=== PATIENT | female | born 1955 | race Caucasian/White ===

== ENCOUNTER 2019-07-17 11:05 | Emergency (ER) | payer MEDICARE, SELFPAY ==
[2019-07-17 11:18] VITALS: BP 163/71; PULSE 67; RESP 18; TEMP 36.7; O2SAT 99
--- NOTE | 2019-07-17 11:22 | DI.RAD.S_ITS ---
PROCEDURE: XR HIP W PEL IF DONE LT 2V INDICATIONS: non traumatic pain TECHNIQUE: AP pelvis with lateral view(s) of the left hip(s). COMPARISON: [facility], CR, XR LUMBAR SPINE 2-3V, 07/17/2019, 11:40. FINDINGS: Bones: Osteophyte collar versus step-off at the left femoral head neck junction. Marked joint narrowing along the lateral portion of the acetabulum with associated marginal osteophytes. Soft tissues: The visualized bowel gas pattern is normal. Vascular calcification in the pelvis. IMPRESSION: Suspected nondisplaced left femoral neck fracture. Consider CT of the left hip if clinically warranted. Moderate to severe left hip osteoarthritis. Dictated by: Dickson Lee M.D. on 07/17/2019 at 11:17 Approved by: Dickson Lee M.D. on 07/17/2019 at 11:23
--- NOTE | 2019-07-17 11:26 | DI.RAD.S_ITS ---
PROCEDURE: XR LUMBAR SPINE 2-3V INDICATIONS: non traumatic pain TECHNIQUE: 2 views of the lumbar spine were acquired. COMPARISON: None. FINDINGS: Bones: 5 [id number] vertebrae are present. No evidence of a compression fracture. No spondylolisthesis. There is S-shaped curvature of the visualized throughout the lumbar spine. Multilevel disc height loss and facet arthrosis. Soft tissues: Overlying bowel gas pattern is normal. Vascular calcifications of the aorta. Surgical clips in the right upper abdomen. IMPRESSION: Degenerative change of the lumbar spine. Dictated by: Dickson Lee M.D. on 07/17/2019 at 11:23 Approved by: Dickson Lee M.D. on 07/17/2019 at 11:25
[2019-07-17] MEDS: CYCLOBENZAPRINE 5 MG TABLET PO (12:48)
[2019-07-17] MEDS: ACETAMINOPHEN 325 MG TABLET 650 MG PO (12:48)
--- NOTE | 2019-07-17 13:01 | DI.CT.S_ITS ---
PROCEDURE: CT LUMBAR SPINE WO CON INDICATIONS: low back pain, xray non-displaced femoral head fx TECHNIQUE: Noncontrast 3 mm thick sections acquired from the T12 level to the sacrum. Sagittal and coronal reformats were constructed. For radiation dose reduction, the following was used: automated exposure control. COMPARISON: [facility], CR, XR LUMBAR SPINE 2-3V, 07/17/2019, 11:40. FINDINGS: Image quality: Excellent. Bones: The spondylolisthesis. Levoscoliosis of the lumbar spine. No acute vertebral body compression fractures. No suspicious lytic or blastic bony lesions. Central spinal caliber is of normal overall caliber. No pars defects. T12-L1: Mild disc height loss with vacuum disc phenomena. No bony spinal canal or foraminal narrowing. L1-L2: No bony spinal canal or foraminal narrowing. L2-L3: Moderate disc height loss, particularly on the right margin. Left facet arthrosis and osteophyte formation and disc space results in moderate left bony foraminal narrowing. L3-L4: Moderate to severe disc height loss vacuum disc phenomenon, particular on the right margin. Right and left facet arthrosis and disc osteophyte formation results in mild to moderate right bony foraminal narrowing. No significant left bony foraminal narrowing. There is also mild narrowing of the spinal canal secondary to degenerative disc and osteophyte disease. L4-L5: Mild disc height loss particularly the left margin with osteophyte formation. Left greater than right facet arthrosis results in mild left foraminal narrowing. No significant right foraminal narrowing. There is also mild spinal canal secondary degenerative disc disease and osteophyte formation. L5-S1: Moderate disc height loss with vacuum disc phenomenon, particular on the left margin with left and right facet arthrosis. There is moderate to severe left foraminal narrowing as well as a disc bulge mildly narrowing the spinal canal. Soft tissues: No retroperitoneal masses or hematomas. Visualized aorta is normal in caliber. Vascular calcification of the abdominal aorta and its branches. IMPRESSION: No evidence of acute lumbar spine injury. Levoscoliosis of the lumbar spine with multilevel degenerative changes. Dictated by: Dickson Lee M.D. on 07/17/2019 at 13:10 Approved by: Dickson Lee M.D. on 07/17/2019 at 13:20
--- NOTE | 2019-07-17 13:01 | DI.CT.S_ITS ---
PROCEDURE: CT PEL WO CON INDICATIONS: low back pain, xray non-displaced femoral head fx TECHNIQUE: Noncontrast 3 mm axial sections acquired through the bony pelvis, with coronal and sagittal reformatting. COMPARISON: None. FINDINGS: Image quality: Excellent. Bones: No acute fracture. The left femoral neck appears mildly shortened compared to the right femoral neck which may be developmental or sequela of remote trauma. There is complete joint space loss of the left hip with marked osteophyte formation of the femur. There is minimal degenerative change of the right hip. Degenerative changes also partially seen in the lumbar spine. Soft tissues: No identified a joint effusion or soft tissue swelling about the hips. Intra-abdominal structures are unremarkable. Vascular calcification of the iliac vessels and the branches. IMPRESSION: No acute hip fracture. The left femoral neck appears mildly shortened compared to the right femoral neck which may be result of developmental variation or sequela of remote trauma. Severe left hip osteoarthritis and minimal right hip osteoarthritis. Dictated by: Dickson Lee M.D. on 07/17/2019 at 13:02 Approved by: Dickson Lee M.D. on 07/17/2019 at 13:08
--- NOTE | 2019-07-17 14:54 | ED.BACK ---
HPI - Back Pain/Injury <LUCIUS Huff - Last Filed: 07/17/19 23:16> General Chief Complaint: Back Pain/Injury Stated Complaint: LOWER BACK PAIN- LEFT SIDE Time Seen by Provider: 07/17/19 12:02 Source: patient Mode of arrival: Ambulatory Limitations: no limitations History of Present Illness HPI Narrative: This is a 64-year-old female, smoker, who presents to ED with her spouse to with chief complain of bilateral low back and sacrum pain which started about a week ago. Patient reports pain was progressively worsening since. Patient reports pain increases with sitting and ambulation. She reports some tingling and numbness to bilateral anterior lateral aspect of legs. Patient denies incontinence or groin numbness. Patient reports urinary frequency and hesitancy. She denies fever, chills, nausea or vomiting. She denies any recent injury or fall. Her primary care physician has ordered x-ray tests for Friday but decided to come to ED for an evaluation. Patient has history of rheumatoid arthritis and takes daily low dose of prednisone, Stuyvesant q.4 hours, morphine extended release for pain medication regimen. Patient is not able to tolerate NSAIDS due to GI irritation. Related Data Previous Rx's Medication Instructions Recorded lidocaine 2 patch TOP DAILY #30 each 07/17/19 nitrofurantoin macrocrystal 100 mg PO BID 5 Days #10 cap 07/17/19 Allergies Allergy/AdvReac Type Severity Reaction Status Date / Time tetanus and diphtheria Allergy Verified 07/17/19 11:22 toxoids Review of Systems <LUCIUS Huff - Last Filed: 07/17/19 23:16> Review of Systems Narrative: General: Denies fever, chills, fatigue, malaise, sweats. HEENT: Denies sinus pain, ear pain, sore throat, difficulty swallowing, dizziness. Respiratory: Denies dyspnea, cough, wheezing, hemoptysis, sputum. Cardiovascular: Denies chest pain, palpitations, orthopnea, edema. Gastrointestinal: Denies nausea, vomiting, abdominal pain, diarrhea, constipation, melena. : See HPI Musculoskeletal: See HPI Skin: Denies rash, skin lesions, or other. Neurologic: Denies weakness, headache, numbness, change in speech, confusion, seizures, incoordination. Psychiatric: No concerning psychosocial issues. 12-point review of systems is negative except for those stated above. Patient History <LUCIUS Huff - Last Filed: 07/17/19 23:16> Social History Smoking Status: Current every day smoker tobacco type: cigarettes alcohol intake frequency: other Substance Use Type: does not use Exam <LUCIUS Huff - Last Filed: 07/17/19 23:16> Narrative Exam Narrative: GEN: Alert, oriented x 3, well appearing and nourished, and in no acute distress. Head: Normal cephalic, atraumatic. No scalp or temporal tenderness, palpable mass or rash. EYES: Pupils are equal, round, and reactive to light and accommodation. Extraocular muscles are intact bilaterally. There is no subconjunctival hemorrhage, exudate and sclera non-icteric. ENT: Bilateral auditory canals and tympanic membranes clear. Hearing grossly intact. Nose without bleeding, purulent discharge or deviation. Facial sinuses nontender to palpate. Mucous membrane moist, no mucosal lesion. Throat without erythema, tonsillar hypertrophy or exudate. Uvula in midline, airway patent. Neck: Trachea in midline. No JVD, non-tender without lymphadenopathy. No masses or thyroid megaly. Supple, non-tender and no meningeal signs. CARDIAC: Normal regular rate and rhythm without murmurs, gallops, or rubs. No chest wall tenderness. No peripheral edema, cyanosis or pallor. Capillary refill is less than 2 seconds. RESPIRATORY: Lungs are cleat to auscultate bilaterally. No cough, wheezes, rales, or rhonchi. No stridor, respiratory distress, increase work of breathing, or accessary muscle used. ABD: Abdomen soft, nontender and non-distended. No guarding or rebound tenderness to palpate. Bowel sounds are normal in all 4 quadrants. There is no palpable masses or organomegaly. EXT: Bilateral fingers joint swelling, boutonniere and swan-neck deformity, ulnar deviation without loss of sensation. SKIN: Warm, dry, normal color for patient. No erythema, lesions or rash over visible areas. NEUROLOGICAL: Alert and oriented to place, time and person. Sensation and motor function intact bilaterally. No facial droops, dysphasia. PSYCHIATRIC: Good judgement and reason, without hallucinations, abnormal affect or abnormal behaviors during the examination. Initial Vital Signs Initial Vital Signs: Vital Signs Temperature 98.0 F 07/17/19 11:18 Pulse Rate 67 07/17/19 11:18 Respiratory Rate 18 07/17/19 11:18 Blood Pressure 163/71 H 07/17/19 11:18 Pulse Oximetry 99 07/17/19 11:18 Back/Spine/Pelvis Thoracic/Lumbar Spine: thoracic and lumbar spine normal to inspection, bend over test abnormal, pain with thoraco-lumbar ROM, paraspinal tenderness, thoraco-lumbar ROM limited (Rotation, extension), scoliosis, lumbar spinal tenderness and straight leg raise positive Sacroiliac Joints: tender to palpation, No pain elicited by compression of iliac crest maneuver and pain elicited by passive hyperextension of lower extremity Sacrum: no ecchymosis, no erythema, no swelling and tenderness <Anna Huang DO - Last Filed: 07/21/19 18:16> Initial Vital Signs Initial Vital Signs: Vital Signs Temperature 98.0 F 07/17/19 11:18 Pulse Rate 67 07/17/19 11:18 Respiratory Rate 18 07/17/19 11:18 Blood Pressure 163/71 H 07/17/19 11:18 Pulse Oximetry 99 07/17/19 11:18 Scores <LUCIUS Huff - Last Filed: 07/17/19 23:16> GCS Gael coma scale eye opening: Spontaneous Gael coma scale verbal response: Orientated [place] coma scale motor response: Obey commands Gael coma scale total score: 15 Course <LUCIUS Huff - Last Filed: 07/17/19 23:16> Orders Ordered: Discontinued Medications Acetaminophen (Tylenol) 650 mg PO NOW ONE Stop: 07/17/19 12:36 Last Admin: 07/17/19 12:48 Dose: 650 mg Documented by: CROW Cyclobenzaprine HCl (Flexeril) 5 mg PO NOW ONE Stop: 07/17/19 12:36 Last Admin: 07/17/19 12:48 Dose: 5 mg Documented by: CROW Vital Signs Vital signs: Vital Signs - 8 hr 07/17/19 15:00 Pulse Rate 60 Respiratory Rate 16 Blood Pressure [Right Arm] 119/64 Pulse Oximetry 97 <Anna Huang DO - Last Filed: 07/21/19 18:16> Orders Ordered: Discontinued Medications Acetaminophen (Tylenol) 650 mg PO NOW ONE Stop: 07/17/19 12:36 Last Admin: 07/17/19 12:48 Dose: 650 mg Documented by: CROW Cyclobenzaprine HCl (Flexeril) 5 mg PO NOW ONE Stop: 07/17/19 12:36 Last Admin: 07/17/19 12:48 Dose: 5 mg Documented by: CROW Vital Signs Vital signs: Vital Signs - 8 hr 07/17/19 15:00 Pulse Rate 60 Respiratory Rate 16 Blood Pressure [Right Arm] 119/64 Pulse Oximetry 97 MDM - Back Pain/Injury <LUCIUS Huff - Last Filed: 07/17/19 23:16> Differential Diagnosis Differential diagnosis: Likely lumbar radiculopathy, sciatica and strain of lumbar region Medical Records Attestation: I reviewed the patient's medical records. Lab Data Attestation: I reviewed the patient's lab results. Labs: Lab Results 07/17/19 Range/Units 13:06 Urine RBC 0-1/hpf (0-5/HPF) Urine WBC 0-1/hpf (0-5/HPF) Urine Bacteria None seen (None) Urine Mucus 1+ H (Negative) Ur Culture Indicated? Specimen cultured Urine Dip Bedside Urine Glucose Negative Bedside Urine Bilirubin - Negative Bedside Urine Ketone - Negative Urine Specific Felt 1.015 Bedside Urine Occult Blood - Negative Bedside Urine pH 6.5 Bedside Urine Protein +/- 15 Bedside Urine Urobilinogen +/- 1mg Bedside Urine Nitrite + Positive Bedside Urine Leukocytes +/- [address]- Lumbar: Radiologist's impression: [place] [address] CT Scan Report Signed Patient: Harmony Phillips EMR#: [id number] : 4Acct:[id number] Age/Sex: 64 / FDate of Service: 07/17/19 Loc: ED Accession Number: [id number] Procedure: CT lumbar spine wo con Ordering Provider: Gildardo Chin PROCEDURE: CT LUMBAR SPINE WO CON INDICATIONS: low back pain, xray non-displaced femoral head fx TECHNIQUE: Noncontrast 3 mm thick sections acquired from the T12 level to the sacrum. Sagittal and coronal reformats were constructed. For radiation dose reduction, the following was used: automated exposure control. COMPARISON: [facility], CR, XR LUMBAR SPINE 2-3V, 07/17/2019, 11:40. FINDINGS: Image quality: Excellent. Bones: The spondylolisthesis. Levoscoliosis of the lumbar spine. No acute vertebral body compression fractures. No suspicious lytic or blastic bony lesions. Central spinal caliber is of normal overall caliber. No pars defects. T12-L1: Mild disc height loss with vacuum disc phenomena. No bony spinal canal or foraminal narrowing. L1-L2: No bony spinal canal or foraminal narrowing. L2-L3: Moderate disc height loss, particularly on the right margin. Left facet arthrosis and osteophyte formation and disc space results in moderate left bony foraminal narrowing. L3-L4: Moderate to severe disc height loss vacuum disc phenomenon, particular on the right margin. Right and left facet arthrosis and disc osteophyte formation results in mild to moderate right bony foraminal narrowing. No significant left bony foraminal narrowing. There is also mild narrowing of the spinal canal secondary to degenerative disc and osteophyte disease. L4-L5: Mild disc height loss particularly the left margin with osteophyte formation. Left greater than right facet arthrosis results in mild left foraminal narrowing. No significant right foraminal narrowing. There is also mild spinal canal secondary degenerative disc disease and osteophyte formation. L5-S1: Moderate disc height loss with vacuum disc phenomenon, particular on the left margin with left and right facet arthrosis. There is moderate to severe left foraminal narrowing as well as a disc bulge mildly narrowing the spinal canal. Soft tissues: No retroperitoneal masses or hematomas. Visualized aorta is normal in caliber. Vascular calcification of the abdominal aorta and its branches. IMPRESSION: No evidence of acute lumbar spine injury. Levoscoliosis of the lumbar spine with multilevel degenerative changes. Dictated by: Dickson Lee M.D. on 07/17/2019 at 13:10 Approved by: Dickson Lee M.D. on 07/17/2019 at 13:20 XR-Hip: Radiologist's impression: [address] [address] XRay Report Signed Patient: Harmony Phillips EMR#: [id number] : [id number]:[id number] Age/Sex: 64 / FDate of Service: 07/17/19 Loc: ED Accession Number: [id number] Procedure: XR hip w pel if done LT 2V Ordering Provider: Anna Huang D.O. PROCEDURE: XR HIP W PEL IF DONE LT 2V INDICATIONS: non traumatic pain TECHNIQUE: AP pelvis with lateral view(s) of the left hip(s). COMPARISON: [facility], CR, XR LUMBAR SPINE 2-3V, 07/17/2019, 11:40. FINDINGS: Bones: Osteophyte collar versus step-off at the left femoral head neck junction. Marked joint narrowing along the lateral portion of the acetabulum with associated marginal osteophytes. Soft tissues: The visualized bowel gas pattern is normal. Vascular calcification in the pelvis. IMPRESSION: Suspected nondisplaced left femoral neck fracture. Consider CT of the left hip if clinically warranted. Moderate to severe left hip osteoarthritis. Dictated by: Dickson Lee M.D. on 07/17/2019 at 11:17 Approved by: Dickson Lee M.D. on 07/17/2019 at 11:23 CT Pelvis: Radiologist's impression: Harmony Phillips Cj 64 F 1955 [place] [address] CT Scan Report Signed Patient: Harmony Phillips EMR#: [id number] : [id number] Age/Sex: 64 / FDate of Service: 07/17/19 Loc: ED Accession Number: [id number] Procedure: CT pelvis wo con Ordering Provider: Gildardo Chin PROCEDURE: CT PEL WO CON INDICATIONS: low back pain, xray non-displaced femoral head fx TECHNIQUE: Noncontrast 3 mm axial sections acquired through the bony pelvis, with coronal and sagittal reformatting. COMPARISON: None. FINDINGS: Image quality: Excellent. Bones: No acute fracture. The left femoral neck appears mildly shortened compared to the right femoral neck which may be developmental or sequela of remote trauma. There is complete joint space loss of the left hip with marked osteophyte formation of the femur. There is minimal degenerative change of the right hip. Degenerative changes also partially seen in the lumbar spine. Soft tissues: No identified a joint effusion or soft tissue swelling about the hips. Intra-abdominal structures are unremarkable. Vascular calcification of the iliac vessels and the branches. IMPRESSION: No acute hip fracture. The left femoral neck appears mildly shortened compared to the right femoral neck which may be result of developmental variation or sequela of remote trauma. Severe left hip osteoarthritis and minimal right hip osteoarthritis. Dictated by: Dickson Lee M.D. on 07/17/2019 at 13:02 Approved by: Dickson Lee M.D. on 07/17/2019 at 13:08 XR-Lumbar: Radiologist's impression: [address] [address] XRay Report Signed Patient: Harmony Phillips EMR#: [id number] : [id number]:[id number] Age/Sex: 64 / FDate of Service: 07/17/19 Loc: ED Accession Number: [id number] Procedure: XR lumbar spine 2-3V Ordering Provider: Gildardo Chin PROCEDURE: XR LUMBAR SPINE 2-3V INDICATIONS: non traumatic pain TECHNIQUE: 2 views of the lumbar spine were acquired. COMPARISON: None. FINDINGS: Bones: 5 [id number] vertebrae are present. No evidence of a compression fracture. No spondylolisthesis. There is S-shaped curvature of the visualized throughout the lumbar spine. Multilevel disc height loss and facet arthrosis. Soft tissues: Overlying bowel gas pattern is normal. Vascular calcifications of the aorta. Surgical clips in the right upper abdomen. IMPRESSION: Degenerative change of the lumbar spine. Dictated by: Dickson Lee M.D. on 07/17/2019 at 11:23 Approved by: Dickson Lee M.D. on 07/17/2019 at 11:25 [facility] Narrative Medical decision making narrative: This is 64-year-old female who presents to ED for an lower back pain evaluation. Initial onset of back pain was about a week ago with progressively worsening pain. Patient is already taking daily pain medication regimen for her pre-existing condition, rheumatoid arthritis. Patient denies recent fall or trauma. Patient had some urinary symptoms such as urgency, frequency and hesitancy. Patient had limited active range of motion such as forward flexion, extension, rotation of her back due to pain. Positive test for leg raise. Patient denies saddle anesthesia, incontinence problem, fever, rash on her back. Initially, x-ray test was obtained on lumbar and hip which was ordered by her primary care physician. No acute findings were found on lumbar but degenerate changes. Hip x-ray showed nondisplaced left femoral neck fracture. Additional CT test lumbar and pelvis were obtained and showed no acute hip fracture but left femoral neck was mildly shortened may due to sequela of remote trauma with severe left hip osteoarthritis and minimal right hip osteoarthritis. Patient has level scoliosis of lumbar spine with multi level degenerative changes without acute lumbar spine injury. When patient was asked again about possible trauma, patient states about 5 years ago patient taken a fall while her fell on top of her. At that time, patient was not told she had a femur fracture. Patient was medicated with Tylenol, Flexeril and she had taken her own Stuyvesant as scheduled time. Urine test shows positive leuks and nitrites. The urine is being cultured at this time. Findings were shared with the patient. Patient reports pain is mildly improved but does not think muscle relaxant helped with discomfort. Patient advised to take additional regular strength of Tylenol in addition to her Stuyvesant as needed for increased pain. Lidocaine patch was prescribed for pain and nitrofurantoin for UTI. Patient advised to follow up with primary care physician and a possible referral to physical therapy. Return precautions were discussed with the patient and verbalized understanding and treatment plan. Patient ambulatory out ED in stable gait. <Anna Huang, - Last Filed: 07/21/19 18:16> Lab Data Labs: Lab Results 07/17/19 Range/Units 13:06 Urine RBC 0-1/hpf (0-5/HPF) Urine WBC 0-1/hpf (0-5/HPF) Urine Bacteria None seen (None) Urine Mucus 1+ H (Negative) Ur Culture Indicated? Specimen cultured Urine Dip Bedside Urine Glucose Negative Bedside Urine Bilirubin - Negative Bedside Urine Ketone - Negative Urine Specific Felt 1.015 Bedside Urine Occult Blood - Negative Bedside Urine pH 6.5 Bedside Urine Protein +/- 15 Bedside Urine Urobilinogen +/- 1mg Bedside Urine Nitrite + Positive Bedside Urine Leukocytes +/- 15 Esterase Discharge Plan Departure Patient Disposition: Home Clinical Impression: Low back pain Qualifiers: Chronicity: unspecified Back pain laterality: bilateral Sciatica presence: unspecified whether sciatica present Qualified Code(s): M54.5 - Low back pain UTI (urinary tract infection) Qualifiers: Urinary tract infection type: site unspecified Hematuria presence: without hematuria Qualified Code(s): N39.0 - Urinary tract infection, site not specified Discharge Date/Time: 07/17/19 15:31 Instructions: DI for Low Back Pain, DI for Urinary Tract Infection (UTI) Activity Restrictions/Additional Instructions: You have been diagnosed with [low back pain and UTI. Your urine is being cultured now and you will be treated with antibiotic medication. You will be called if you need different antibiotic medication to treat UTI. Printout for x-ray test results were provided today for you to follow up with primary care physician. There was old fracture was shown in left hip. There is no acute findings were shown in today's x-ray or CT test.]. What to do: *Take your medications as directed. You can add additional regular strength of Tylenol as needed with your Stuyvesant. You were treated with cyclobenzaprine today as muscle relaxant in the ED. Nitrofurantoin and lidocaine patch has been transmitted to [facility]. *Follow up with your primary care provider in 2-3 days, call for an appointment. Let them know you were seen in the ED and that we asked you to be seen in follow up. *Return to ED if you have any new, worsening, or concerning symptoms, such as [worsening pain, incontinence, numbness in groin area, weakness to her legs, chest pain, breathing difficulty, or any acute concerns]. Prescriptions: New lidocaine 5 % adhesive patch,medicated 2 patch TOP DAILY Qty: 30 RF: 0 nitrofurantoin macrocrystal 100 mg capsule 100 mg PO BID 5 Days Qty: 10 RF: 0 Referrals: Erik Curtis MD [Primary Care Provider] -
[2019-07-17 15:00] VITALS: BP 119/64; PULSE 60; RESP 16; O2SAT 97
[2019-07-17 15:19] LABS: Bacteria Urine None Seen
[2019-07-17 15:23] LABS: RBC Urine 0-1/HPF (0-5/HPF); WBC Urine 0-1/HPF (0-5/HPF)
[2019-07-17 15:24] LABS: Mucus Urine 1+ (Negative)
[2019-07-17 15:28] LABS: Culture Indicated Urine Specimen Cultured
== END 2019-07-17 15:31 | disposition home or self-care (01) ==
PROVIDERS: Emergency Provider Nurse Practitioner Family; PCP Family Medicine
DX: M54.5 Low back pain (principal); N39.0 Urinary tract infection, site not specified
CPT/HCPCS: 72100; 72131; 72192; 73502; 81003; 81015; 87086; 99282; 99284

== ENCOUNTER 2019-07-17 16:56 | Emergency (ER) | payer OTHER, MEDICARE, SELFPAY ==
[2019-07-17 16:55] VITALS: BP 174/71; PULSE 62; RESP 12; TEMP 36.6; O2SAT 99
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
[2019-07-17 19:02] VITALS: BP 151/63; PULSE 60; O2SAT 100
== END 2019-07-17 19:13 | disposition home or self-care (01) ==
PROVIDERS: Emergency Provider Nurse Practitioner Family; PCP Family Medicine
DX: S16.1XXA Strain of muscle, fascia and tendon at neck level, initial encounter (principal); M54.6 Pain in thoracic spine; V53.6XXA Passenger in pick-up truck or van injured in collision with car, pick-up truck or van in traffic accident, initial encounter
CPT/HCPCS: 71046; 72072; 72125; 99282; 99284

== ENCOUNTER → 2023-03-13 08:32 | Outpatient (CLI) | payer MEDICARE, SELFPAY ==
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
== END ==
PROVIDERS: PCP Family Medicine; Referring Provider Internal Medicine Critical Care Medicine; Visit Provider Internal Medicine Critical Care Medicine
DX: C34.91 Malignant neoplasm of unspecified part of right bronchus or lung (principal); R91.8 Other nonspecific abnormal finding of lung field; M06.9 Rheumatoid arthritis, unspecified; I25.10 Atherosclerotic heart disease of native coronary artery without angina pectoris; Z90.49 Acquired absence of other specified parts of digestive tract
CPT/HCPCS: 71250

== ENCOUNTER → 2023-06-05 09:59 | Outpatient (CLI) | payer MEDICARE, SELFPAY ==
--- NOTE | 2023-06-05 | DI.CT.S_ITS ---
PROCEDURE: CT CHEST WO CON INDICATIONS: PULMONARY INFILTRATES / SQUAMOUS CELL CARCINOMA TECHNIQUE: Noncontrast 5 mm thick sections acquired from the pulmonary apices to the posterior costophrenic angles. 1 mm lung window, 5 mm thick coronal and sagittal and 7 mm axial MIP reformats were then acquired. For radiation dose reduction, the following was used: automated exposure control, adjustment of mA and/or kV according to patient size. COMPARISON: NM, NM PET CT FUSION SKULL 2 THIGH, 03/22/2020, 15:39. [facility], CR, XR CHEST 2V, 07/17/2019, 17:59. [facility], CT, CT CHEST WO CON, 03/13/2023, 8:41. FINDINGS: Image quality: Excellent. Lungs and pleura: The 4 mm nodule (series 3, image 137) in the left lower lobe appears stable. The 2 mm nodules seen on the last exam is no longer well seen. No new suspicious lung nodules. Mild emphysema. Trace right pleural effusion. Postsurgical changes are noted in the right lower lobe. Nodular infiltrates in the anterior inferior middle lobe upper lobe has mostly resolved. There is subpleural scars and atelectasis in right middle lobe, lingula and both lower lobes2. No acute air space opacities. No pleural effusions or pneumothorax. Central and peripheral airways are patent and normal in caliber. Mediastinum: Heart size is normal. No pericardial effusion. Mild coronary artery calcification. No mediastinal adenopathy by size criteria. Thoracic aorta and central pulmonary arteries are normal in size. Esophagus is normal in caliber. No hiatal hernia. Bones and chest wall: No suspicious bony lesions. Old right 5th, 6th and 7th rib fractures are noted. No vertebral body compression fractures. No axillary or supraclavicular adenopathy by size criteria. Thyroid gland appears enlarged. Abdomen: Gallbladder is surgically absent. There is pneumobilia. Visualized upper abdominal solid organs and bowel loops appear normal in the absence of contrast. IMPRESSION: 1. Stable 4 mm nodule in the left lower lobe. The 2 mm seen on the last exam is no longer visualized. Recommend continue CT follow-up. Neck CT follow-up can be obtained in 6-12 months. 2. The full resolution of right middle lobe nodular densities. 3. Postsurgical changes in the right lower lobe. 4. Mild coronary artery calcification. Dictated by: Delfino Avitia M.D. on 06/05/2023 at 13:02 Approved by: Delfino Avitia M.D. on 06/05/2023 at 13:13
== END ==
PROVIDERS: PCP Family Medicine; Referring Provider Internal Medicine Critical Care Medicine; Visit Provider Internal Medicine Critical Care Medicine
DX: C34.91 Malignant neoplasm of unspecified part of right bronchus or lung (principal); M06.9 Rheumatoid arthritis, unspecified; R91.8 Other nonspecific abnormal finding of lung field; I25.10 Atherosclerotic heart disease of native coronary artery without angina pectoris; J43.9 Emphysema, unspecified; Z90.49 Acquired absence of other specified parts of digestive tract
CPT/HCPCS: 71250

== ENCOUNTER → 2024-02-19 08:19 | Outpatient (CLI) | payer MEDICARE, SELFPAY ==
--- NOTE | 2024-02-19 | DI.CT.S_ITS ---
PROCEDURE: CT CHEST WO CON INDICATIONS: SHORT OF BREATH TECHNIQUE: Noncontrast 5 mm thick sections acquired from the pulmonary apices to the posterior costophrenic angles. 1 mm lung window, 5 mm thick coronal and sagittal and 7 mm axial MIP reformats were then acquired. For radiation dose reduction, the following was used: automated exposure control, adjustment of mA and/or kV according to patient size. COMPARISON: [facility], CT, CT CHEST WO CON, 06/05/2023, 10:15. FINDINGS: Image quality: Diagnostic. Lower Neck: No enlarged lymph nodes. Thyroid: Is that para is that care a hello hello hello No thyroid nodules which require sonographic follow up, per consensus guidelines. Axillae: No enlarged lymph nodes. Chest Wall: Unremarkable. Bones: Unremarkable. Lungs and Pleura: No pneumothorax or pleural effusions. Remote wedge resection, right lower lobe. Question minimal increase in size of a left lower lobe pulmonary nodule, which measured 4 mm on previous image 137/3 and now measures 5 mm. It is questionably minimally spiculated. No new pulmonary nodules or other increasing pulmonary nodules. Scattered right basilar scarring. Development of patchy density in the left lung base, potentially a tree-in-bud opacity, potentially representing atelectasis or minimal infection. Heart: Heart size is normal. No pericardial effusion. Thoracic Vessels: The aorta and pulmonary arteries demonstrate normal size. Mediastinum and Teri: No enlarged lymph nodes. Esophagus: No wall thickening. No hiatal hernia. Upper Abdomen: Visualized upper abdomen solid organs and bowel loops appear normal. IMPRESSION: 1. Remote wedge resection in the right lower lobe, with a given history of squamous cell carcinoma. 2. Question minimal interval increase in the size of a left lower lobe pulmonary nodule, now measuring 5 mm. Comment: Recommend follow-up CT in 6-12 months. Dictated by: Gildardo Ferrer M.D. on 02/19/2024 at 14:52 Approved by: Gildardo Ferrer M.D. on 02/19/2024 at 15:00
== END ==
LOC: RESP 08:20
PROVIDERS: PCP Registered Nurse; Referring Provider Internal Medicine Critical Care Medicine; Visit Provider Internal Medicine Critical Care Medicine
DX: M06.9 Rheumatoid arthritis, unspecified (principal); F17.210 Nicotine dependence, cigarettes, uncomplicated; C34.91 Malignant neoplasm of unspecified part of right bronchus or lung; R94.2 Abnormal results of pulmonary function studies; J98.8 Other specified respiratory disorders
CPT/HCPCS: 71250; 94010; 94726; 94729

== ENCOUNTER → 2024-10-13 10:21 | Outpatient (CLI) | payer MEDICARE, SELFPAY ==
--- NOTE | 2024-10-13 | DI.CT.S_ITS ---
PROCEDURE: CT CHEST WO CON INDICATIONS: Latent tuberculosis TECHNIQUE: Noncontrast 5 mm thick sections acquired from the pulmonary apices to the posterior costophrenic angles. 1 mm lung window, 5 mm thick coronal and sagittal and 7 mm axial MIP reformats were then acquired. For radiation dose reduction, the following was used: automated exposure control, adjustment of mA and/or kV according to patient size. COMPARISON: [facility], [place], [place] CT FUSION SKULL 2 THIGH, 03/22/2020, 15:39. [facility], CT, CT CHEST WO CON, 06/05/2023, 10:15. [facility], CT, CT CHEST WO CON, 02/19/2024, 9:41. FINDINGS: Image quality: Diagnostic. Lower Neck: No enlarged lymph nodes. Thyroid: Isthmus thyroid nodule measuring 1.8 cm, similar. Axillae: No enlarged lymph nodes. Chest Wall: Unremarkable. Bones: Left 4th rib sclerosis or callus formation, new. Several prior left-sided rib fractures. Several prior right-sided rib fractures. Prior right clavicle fracture. Lungs and Pleura: No pneumothorax or pleural effusions. Minimal opacity in the right upper lobe. Postoperative findings in the right lower lobe are similar. -Left lower lobe pulmonary nodule measuring 0.8 cm, (3/152), previously 0.6 cm. Mildly cavitary. Heart: Heart size is normal. No pericardial effusion. Thoracic Vessels: The aorta and pulmonary arteries demonstrate normal size. Mediastinum and Teri: No enlarged lymph nodes. Esophagus: No wall thickening. Small hiatal hernia. Upper Abdomen: Pneumobilia. Post cholecystectomy. Cortical thinning of the kidneys. No adrenal nodule. Subcutaneous nodule at the anterior superior right abdomen measuring 0.7 cm, (2/91), unchanged. IMPRESSION: 1. Left lower lobe cavitary pulmonary nodule measuring 0.8 cm, increased. Indeterminate. -PET/CT may be helpful for further evaluation. Endobronchial biopsy could also be considered. Recommend correlation with prior right lower lobe pathology. 2. Left 4th rib increased sclerosis or callus. 3. No adenopathy. Dictated by: Jus Jamil M.D. on 10/13/2024 at 23:44 Approved by: Jus Jamil M.D. on 10/14/2024 at 0:08
== END ==
PROVIDERS: PCP Registered Nurse; Referring Provider Internal Medicine Critical Care Medicine; Visit Provider Internal Medicine Critical Care Medicine
DX: R91.1 Solitary pulmonary nodule (principal); M89.8X8 Other specified disorders of bone, other site; K44.9 Diaphragmatic hernia without obstruction or gangrene; Z22.7 Latent tuberculosis; Z87.81 Personal history of (healed) traumatic fracture; Z90.49 Acquired absence of other specified parts of digestive tract
CPT/HCPCS: 71250

== ENCOUNTER → 2025-04-06 08:36 | Outpatient (CLI) | payer MEDICARE, SELFPAY | LOC: RESP 08:37 | PROVIDERS: PCP Internal Medicine; Referring Provider Internal Medicine Pulmonary Disease; Visit Provider Internal Medicine Pulmonary Disease | DX: J44.9 Chronic obstructive pulmonary disease, unspecified (principal); F17.210 Nicotine dependence, cigarettes, uncomplicated; R94.2 Abnormal results of pulmonary function studies; C34.32 Malignant neoplasm of lower lobe, left bronchus or lung | CPT/HCPCS: 94060; 94726; 94729 ==

== ENCOUNTER 2025-06-02 18:23 | Emergency (ER) | payer MEDICARE, SELFPAY ==
[2025-06-02] VITALS (40 sets, daily range): BP systolic 137–202; BP diastolic 66–97; PULSE 49–90; RESP 20–31; TEMP 37; O2SAT 82–100; BMI 24.0
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
--- NOTE | 2025-06-02 19:39 | PC.NURSE ---
Pt states that she had hip surgery back in December 2024. It has popped out of socked once before, seen at [facility], but did not want to go to them again.
--- NOTE | 2025-06-02 19:55 | ED_ITS ---
HPI - Extremity Injury (Lower) <Ashley Rey, - Last Filed: 06/04/25 04:08> General Chief Complaint: Extremity Injury, Lower Stated Complaint: c/o right hip dislocation, 3x 24hrs Time Seen by Provider: 06/02/25 19:22 Source: patient and EMS Mode of arrival: EMS Limitations: no limitations History of Present Illness HPI Narrative: 69-year-old female with a history of rheumatoid arthritis, hypertension, lung cancer with recent radiation, has been told she does not require chemotherapy or other interventions. Of right hip replacement 9 months ago at [facility], patient's has a 4 dislocations in the last 24 hours. Patient had her reduced at [facility] this afternoon and after driving home with family and getting to the bathroom her hip went out again. Patient states she has pain. She denies loss of sensation. She states she has had prior dislocations in the past and was told after the initial to that she had hardware. This was performed at [facility]. Patient denies any other symptoms currently besides feeling little bit nauseated. States losartan, then voc and prednisone 5 mg as well as aspirin daily are her only home medications. Patient does use tobacco daily, no alcohol, no recreational drugs. Primary care is Dr. Booth. Related Data Home Medications ?Medication ?Instructions ?Recorded ?Confirmed hydrocodone 10 mg-acetaminophen 2 tab PO Q4H chronic p ain 06/03/25 06/03/25 325 mg tablet losartan 25 mg tablet 12.5 mg PO DAILY 06/03/25 morphine 100 mg tablet,extended PO 06/03/25 release omeprazole 20 mg capsule,delayed 20 mg PO DAILY 06/03/25 release potassium chloride 10 mEq 10 meq PO BID PRN potassium 06/03/25 06/03/25 capsule,extended release supplement prednisone 5 mg tablet 5 mg PO DAILY 06/03/2506/03 upadacitinib 15 mg tablet,extended 15 mg PO DAILY 02/2006/03/25 release 24 hr (Rinvoq) Previous Rx's ?Medication ?Instructions ?Recorded lidocaine 5 % topical patch 2 patch topical DAILY back pain 07/17/19 #30 ea Allergies Allergy/AdvReac Type Severity Reaction Status Date / Time tetanus and diphtheria Allergy Verified 06/02/25 18:29 toxoids Review of Systems <Ashley Rey DO - Last Filed: 06/04/25 04:08> Review of Systems ROS Unobtainable: All systems reviewed & are unremarkable except as noted in HPI and below Patient History <Ashley Rey DO - Last Filed: 06/04/25 04:08> tobacco type: cigarettes alcohol intake frequency: other Exam <Ashley Rey DO - Last Filed: 06/04/25 04:08> Narrative Exam Narrative: GEN: well nourished, well appearing female, alert and oriented x 3, patient appears to be in moderate distress. HEENT: Atraumatic, pupils are equal round reactive to light, extraocular movements are intact, nares are clear, TMs are clear with no fluid, there is no conjunctival pallor. Throat is clear without any exudates, erythema, tonsillar enlargement or uvular deviation HEART: Regular rate and rhythm without murmur, clicks, rubs. No carotid bruits, pulses are equal in upper and lower extremities LUNGS:Lungs clear to auscultation, no wheezes, rales, crackles, chest moves symmetrically ABD:bowel sounds normal, soft, non-tender, no guarding, rebound, rigidity, no masses noted, no hepatosplenomegaly MSCL: Non-tender, no muscle atrophy, muscles strength 5/5 upper and lower extremities, full range of motion, normal gait NEURO:CN 2-12 intact, sensation normal, reflexes 2/4 upper and lower extremities. finger nose finger test normal, heel rios test normal, romberg normal Initial Vital Signs Initial Vital Signs: Vital Signs Temperature 98.6 F 06/02/25 18:28 Pulse Rate 66 06/02/25 18:28 Respiratory Rate 20 06/02/25 18:28 Blood Pressure 146/66 H 06/02/25 18:28 Pulse Oximetry 89 L 06/02/25 18:28 Oxygen Delivery Method Room Air 06/02/25 18:28 <Juma Nielson, DO - Last Filed: 06/03/25 18:13> Initial Vital Signs Initial Vital Signs: Vital Signs Temperature 98.6 F 06/02/25 18:28 Pulse Rate 66 06/02/25 18:28 Respiratory Rate 20 06/02/25 18:28 Blood Pressure 146/66 H 06/02/25 18:28 Pulse Oximetry 89 L 06/02/25 18:28 Oxygen Delivery Method Room Air 06/02/25 18:28 Procedures <Ashley Rey DO - Last Filed: 06/04/25 04:08> Orthopedic Joint Reduction Joint #1: Time Out Performed: Yes Joint Reduction Location: hip Analgesia: procedural sedation Technique used: traction/counter-traction and direct manipulation Post-reduction neuro exam: intact and no change Post-reduction vascular: intact and no change Post Reduction X-Ray Obtained: Yes Post Reduction X-Ray Results: reduced Splint Applied: Yes (knee immobilizer, pillow as adductor pillow.) Patient Tolerated Procedure: Well and No complications Procedural Sedation Consent signed: Yes Time out performed: Yes Indication: fracture/dislocation reduction ASA Class: II Mallampati Airway Classification: Class II Preparation: hospital monitor applied, pulse oximeter, capnometry used, supplemental O2 applied, suction/airway equipment at bedside and IV secured IV Propofol dose (mg): 80 ED Sedation Level: Moderate (Concious) Patient Tolerated Procedure: Well and No complications Complications: none Additional Comments: Dr. Donald, orthopedic surgery assisted with reduction. Course <Ashley Rey DO - Last Filed: 06/04/25 04:08> Orders Ordered: Discontinued Medications Acetaminophen (Acetaminophen 325 Mg Tablet) 650 mg PO NOW ONE Stop: 06/03/25 02:17 Last Admin: 06/03/25 02:46 Dose: 650 mg Documented By: Sodium Chloride (Normal Saline 0.9%) 1,000 mls @ 100 mls/hr IV CONT FARIBA Last Infusion: 06/03/25 23:30 Dose: Infused Documented By: Admin: 06/03/25 19:45 Dose: 100 mls/hr Documented By: Infusion: 06/03/25 01:40 Dose: Infused Documented By: Admin: 06/02/25 20:50 Dose: 100 mls/hr Documented By: WILLIAM Lorazepam (Lorazepam 0.5 Mg Tablet) 1 mg PO NOW ONE Stop: 06/03/25 14:18 Last Admin: 06/03/25 14:25 Dose: 1 mg Documented By: CLARA Losartan Potassium (Losartan 25 Mg Tablet) 12.5 mg PO NOW ONE Stop: 06/03/25 01:16 Last Admin: 06/03/25 01:47 Dose: 12.5 mg Documented By: WILLIAM Morphine Sulfate (Morphine 4 Mg/Ml Inj) 4 mg IV NOW ONE Stop: 06/02/25 19:57 Last Admin: 06/02/25 20:16 Dose: 4 mg Documented By: AB Morphine Sulfate (Morphine 4 Mg/Ml Inj) 4 mg IV NOW ONE Stop: 06/02/25 20:58 Last Admin: 06/02/25 21:02 Dose: 4 mg Documented By: WILLIAM Morphine Sulfate (Morphine 4 Mg/Ml Inj) 4 mg IV NOW ONE Stop: 06/03/25 01:39 Last Admin: 06/03/25 01:46 Dose: 4 mg Documented By: WILLIAM Morphine Sulfate (Morphine 4 Mg/Ml Inj) 4 mg IV NOW ONE Stop: 06/03/25 09:30 Last Admin: 06/03/25 09:33 Dose: 4 mg Documented By: CLARA Morphine Sulfate (Morphine 4 Mg/Ml Inj) 4 mg IV NOW ONE Stop: 06/03/25 19:10 Last Admin: 06/03/25 19:18 Dose: 4 mg Documented By: CLARA Morphine Sulfate (Morphine 4 Mg/Ml Inj) 4 mg IV Q3H FARIBA Last Admin: 06/03/25 22:33 Dose: 4 mg Documented By: ANUSHKA Nicotine (Nicotine 21 Mg Patch) 21 mg TOP NOW ONE Stop: 06/03/25 16:16 Last Admin: 06/03/25 19:15 Dose: 21 mg Documented By: CLARA Ondansetron HCl (Ondansetron 4 Mg/2 Ml Inj) 4 mg IV NOW ONE Stop: 06/02/25 20:08 Last Admin: 06/02/25 20:14 Dose: 4 mg Documented By: AB Ondansetron HCl (Ondansetron 4 Mg/2 Ml Inj) 4 mg IV NOW ONE Stop: 06/03/25 02:14 Last Admin: 06/03/25 02:46 Dose: 4 mg Documented By: AB Ondansetron HCl (Ondansetron 4 Mg/2 Ml Inj) 4 mg IV NOW ONE Stop: 06/03/25 12:20 Last Admin: 06/03/25 12:23 Dose: 4 mg Documented By: CLARA Ondansetron HCl (Ondansetron 4 Mg/2 Ml Inj) 4 mg IV NOW ONE Stop: 06/03/25 21:48 Last Admin: 06/03/25 21:49 Dose: 4 mg Documented By: ANUSHKA Propofol (Propofol 200 Mg/20 Ml Vial) 80 mg IV NOW ONE Stop: 06/02/25 21:11 Last Admin: 06/02/25 21:28 Dose: 80 mg Documented By: Vital Signs Vital signs: Vital Signs - 8 hr 06/03/25 20:30 06/03/25 23:18 Temperature 98.9 F Pulse Rate 80 78 Respiratory Rate 16 Blood Pressure 145/60 H Pulse Oximetry 94 98 Oxygen Delivery Method Room Air <Juma Nielson, - Last Filed: 06/03/25 18:13> Orders Ordered: Discontinued Medications Acetaminophen (Acetaminophen 325 Mg Tablet) 650 mg PO NOW ONE Stop: 06/03/25 02:17 Last Admin: 06/03/25 02:46 Dose: 650 mg Documented By: Sodium Chloride (Normal Saline 0.9%) 1,000 mls @ 100 mls/hr IV CONT FARIBA Last Infusion: 06/03/25 23:30 Dose: Infused Documented By: Admin: 06/03/25 19:45 Dose: 100 mls/hr Documented By: Infusion: 06/03/25 01:40 Dose: Infused Documented By: Admin: 06/02/25 20:50 Dose: 100 mls/hr Documented By: WILLIAM Lorazepam (Lorazepam 0.5 Mg Tablet) 1 mg PO NOW ONE Stop: 06/03/25 14:18 Last Admin: 06/03/25 14:25 Dose: 1 mg Documented By: CLARA Losartan Potassium (Losartan 25 Mg Tablet) 12.5 mg PO NOW ONE Stop: 06/03/25 01:16 Last Admin: 06/03/25 01:47 Dose: 12.5 mg Documented By: WILLIAM Morphine Sulfate (Morphine 4 Mg/Ml Inj) 4 mg IV NOW ONE Stop: 06/02/25 19:57 Last Admin: 06/02/25 20:16 Dose: 4 mg Documented By: Morphine Sulfate (Morphine 4 Mg/Ml Inj) 4 mg IV NOW ONE Stop: 06/02/25 20:58 Last Admin: 06/02/25 21:02 Dose: 4 mg Documented By: WILLIAM Morphine Sulfate (Morphine 4 Mg/Ml Inj) 4 mg IV NOW ONE Stop: 06/03/25 01:39 Last Admin: 06/03/25 01:46 Dose: 4 mg Documented By: SBF Morphine Sulfate (Morphine 4 Mg/Ml Inj) 4 mg IV NOW ONE Stop: 06/03/25 09:30 Last Admin: 06/03/25 09:33 Dose: 4 mg Documented By: CLARA Morphine Sulfate (Morphine 4 Mg/Ml Inj) 4 mg IV NOW ONE Stop: 06/03/25 19:10 Last Admin: 06/03/25 19:18 Dose: 4 mg Documented By: CLARA Morphine Sulfate (Morphine 4 Mg/Ml Inj) 4 mg IV Q3H FARIBA Last Admin: 06/03/25 22:33 Dose: 4 mg Documented By: ANUSHKA Nicotine (Nicotine 21 Mg Patch) 21 mg TOP NOW ONE Stop: 06/03/25 16:16 Last Admin: 06/03/25 19:15 Dose: 21 mg Documented By: CLARA Ondansetron HCl (Ondansetron 4 Mg/2 Ml Inj) 4 mg IV NOW ONE Stop: 06/02/25 20:08 Last Admin: 06/02/25 20:14 Dose: 4 mg Documented By: Ondansetron HCl (Ondansetron 4 Mg/2 Ml Inj) 4 mg IV NOW ONE Stop: 06/03/25 02:14 Last Admin: 06/03/25 02:46 Dose: 4 mg Documented By: Ondansetron HCl (Ondansetron 4 Mg/2 Ml Inj) 4 mg IV NOW ONE Stop: 06/03/25 12:20 Last Admin: 06/03/25 12:23 Dose: 4 mg Documented By: CLARA Ondansetron HCl (Ondansetron 4 Mg/2 Ml Inj) 4 mg IV NOW ONE Stop: 06/03/25 21:48 Last Admin: 06/03/25 21:49 Dose: 4 mg Documented By: ANUSHKA Propofol (Propofol 200 Mg/20 Ml Vial) 80 mg IV NOW ONE Stop: 06/02/25 21:11 Last Admin: 06/02/25 21:28 Dose: 80 mg Documented By: AB Vital Signs Vital signs: Vital Signs - 8 hr 06/03/25 20:30 06/03/25 23:18 Temperature 98.9 F Pulse Rate 80 78 Respiratory Rate 16 Blood Pressure 145/60 H Pulse Oximetry 94 98 Oxygen Delivery Method Room Air MDM - Extremity Injury (Lower) <Ashley Rey DO - Last Filed: 06/04/25 04:08> Lab Data 06/02/25 20:00 06/02/25 20:00 Labs: Lab Results 06/02/25 Range/Units 20:00 WBC 2.8 L (4.5-11.0) X10^3/uL RBC 3.23 L (4.0-5.2) X10^6/uL Hgb 9.9 L (12.0-16.0) g/dL Hct 29.2 L (36-46) % MCV 90.5 (80-100) fL MCH 30.6 (26-34) PG MCHC 33.9 (30-36) % RDW 16.8 H (11.6-14.8) % Plt Count 223 (150-400) X10^3/uL Neut % (Auto) 73.6 (50-75) % Lymph % (Auto) 16.5 L (25-40) % Edwards % (Auto) 9.1 (3-14) % Eos % (Auto) 0.3 L (2-4) % Baso % (Auto) 0.5 (0-2) % Neut # (Auto) 2100 (6966-5686) /uL Lymph # (Auto) 500 L (9363-1752) /uL Edwards # (Auto) 300 (0-900) /uL Eos # (Auto) 0 (0-450) /uL Baso # (Auto) 0 (0-100) /uL PT 10.9 (9.4-12.5) SECONDS INR 1.0 (0.9-1.3) APTT 24 L (25.1-36.5) SECONDS Sodium 137 (137-145) mmol/L Potassium 3.8 (3.4-5.1) mmol/L Chloride 104 (98-107) mmol/L Carbon Dioxide 27 (22-32) mmol/L BUN 9 (7-17) mg/dL Creatinine 0.60 (0.52-1.04) mg/dL Estimated GFR > 60 (>60) mL/min BUN/Creatinine Ratio 15.0 (6-22) Glucose 85 (70-99) mg/dL Calcium 9.0 (8.4-10.2) mg/dL Total Bilirubin 1.1 (0.2-1.3) mg/dL AST 39 H (14-36) IU/L ALT 13 (<35) IU/L Alkaline Phosphatase 67 (38-126) U/L Total Protein 6.4 (6.3-8.2) g/dL Albumin 3.7 (3.5-5.0) g/dL Globulin 2.7 (1.7-4.1) g/dL Albumin/Globulin Ratio 1.4 (1.0-2.8) Point of Care Testing Test Results Not applicable MDM Narrative Medical decision making narrative: 69 year old female with recurrent dislocation x4 in the last 24 hours. Hip x-ray shows right hip dislocation. On preliminary review. Formal read shows right hip dislocation with the age indeterminate fracture fragment adjacent to the femoral hip left hip arthroplasty in appropriate position, lumbosacral degenerative changes vascular calcifications. Labs show white count of 2.8 hemoglobin of 9.9 platelets are 223 no priors for comparison, coags are negative, electrolytes BUN and creatinine are normal, AST is 39 LFTs are otherwise normal. Patient notes history of anemia and notes her white count has been low in the past. Postprocedure x-ray shows right hip arthroplasty status post reduction femoral head components appear located with the acetabular component these fragments superior to the greater trochanter may represent acute versus chronic fracture fragment. CT pelvis shows relocation of right hip arthroplasty, humeral component of concern sitting superiorly within the acetabular component, fracture fragments who agreed with the right greater trochanter possibly acute, evaluation of the pulmonary secondary to demineralization. Small fluids running right hip may represent joint effusion or hematoma from recent trauma. 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 Spoke with Dr. Donald, orthopedic surgery at 06/02/252009: Does not do hip revisions we will speak with 1 of our other general surgeons to see if they would be willing if not would require transfer. Asks that we reduce the hip in the meantime. Dr. Donald, spoke with our other orthopedic surgeons, do not feel comfortable would request transfer to [place] to patients primary. He would recommend reduction here in the department. Dr. Donald in the department. Discussed with the patient she is agreeable for attempted reduction here in the department by myself. Patient had successful reduction, tolerated well. DR. Donald requests CT of hip. Plan for transfer to [place] for continuity of care and revision, patient poly appears to have migrated from joint. Spoke with the patient may require transfer to [place] [facility] instead of [place] she is agreeable. [place] [facility] coordinator states orthopedic group states it is not their patient and will not take them. Call out to [facility], spoke with coordinator. Will page out orthopedics. 06/03/[address] Caldera, orthopedic surgery. Spoke with him. He is in [place] currently. States [facility] is covering his patients, to call them. Will try calling directly to office. Spoke with Dr. Raygoza [phone] covering for [facility], states that they are covering for Dr. Caldera but states they do not have anyone for hip revisions with this scenario. He is unsure what the call coverage situation is for Dr. Caldera as there is another group that might be able to take the patient. 06/03/[address] Pennington, orthopedics for . Called back, will need to message their joint specialist. Asks that we recontact [facility] in the morning as they do historically have orthopedic surgeons who do this type of revision and if they do not have coverage for the necessary revision they will be happy to take care of patient. Discussed oncoming orthopedic surgeon is the joint specialist and will let them know about difficulty with transfer and they can make final decision. 06/03/25 Patient signed out to Dr. Nielson while awaiting callback and plan to reach back out to [facility]. 06/03/25 Dr. Rey, received patient back and sign out. Dr. Nielson was able to reach Dr. Jasson Jacome this evening and patient is accepted for transfer. Awaiting bed assignment. Patient placed in SCDs. Case d/w Dr.Clifford Jacome - has formally accepted pt for transfer but his collegue will be performing surgery next week Dr. Raygoza. [facility] called with bed assignment. Patient transported via EMS. <Juma Nielson, DO - Last Filed: 06/03/25 18:13> Lab Data Labs: Lab Results 06/02/25 Range/Units 20:00 WBC 2.8 L (4.5-11.0) X10^3/uL RBC 3.23 L (4.0-5.2) X10^6/uL Hgb 9.9 L (12.0-16.0) g/dL Hct 29.2 L (36-46) % MCV 90.5 (80-100) fL MCH 30.6 (26-34) PG MCHC 33.9 (30-36) % RDW 16.8 H (11.6-14.8) % Plt Count 223 (150-400) X10^3/uL Neut % (Auto) 73.6 (50-75) % Lymph % (Auto) 16.5 L (25-40) % Edwards % (Auto) 9.1 (3-14) % Eos % (Auto) 0.3 L (2-4) % Baso % (Auto) 0.5 (0-2) % Neut # (Auto) 2100 (1077-0163) /uL Lymph # (Auto) 500 L (6295-2524) /uL Edwards # (Auto) 300 (0-900) /uL Eos # (Auto) 0 (0-450) /uL Baso # (Auto) 0 (0-100) /uL PT 10.9 (9.4-12.5) SECONDS INR 1.0 (0.9-1.3) APTT 24 L (25.1-36.5) SECONDS Sodium 137 (137-145) mmol/L Potassium 3.8 (3.4-5.1) mmol/L Chloride 104 (98-107) mmol/L Carbon Dioxide 27 (22-32) mmol/L BUN 9 (7-17) mg/dL Creatinine 0.60 (0.52-1.04) mg/dL Estimated GFR > 60 (>60) mL/min BUN/Creatinine Ratio 15.0 (6-22) Glucose 85 (70-99) mg/dL Calcium 9.0 (8.4-10.2) mg/dL Total Bilirubin 1.1 (0.2-1.3) mg/dL AST 39 H (14-36) IU/L ALT 13 (<35) IU/L Alkaline Phosphatase 67 (38-126) U/L Total Protein 6.4 (6.3-8.2) g/dL Albumin 3.7 (3.5-5.0) g/dL Globulin 2.7 (1.7-4.1) g/dL Albumin/Globulin Ratio 1.4 (1.0-2.8) Point of Care Testing Test Results Not applicable MDM Narrative Medical decision making narrative: 69 year old female with recurrent dislocation x4 in the last 24 hours. Hip x-ray shows right hip dislocation. On preliminary review. Formal read shows right hip dislocation with the age indeterminate fracture fragment adjacent to the femoral hip left hip arthroplasty in appropriate position, lumbosacral degenerative changes vascular calcifications. Labs show white count of 2.8 hemoglobin of 9.9 platelets are 223 no priors for comparison, coags are negative, electrolytes BUN and creatinine are normal, AST is 39 LFTs are otherwise normal. Patient notes history of anemia and notes her white count has been low in the past. Postprocedure x-ray shows right hip arthroplasty status post reduction femoral head components appear located with the acetabular component these fragments superior to the greater trochanter may represent acute versus chronic fracture fragment. CT pelvis shows relocation of right hip arthroplasty, humeral component of concern sitting superiorly within the acetabular component, fracture fragments who agreed with the right greater trochanter possibly acute, evaluation of the pulmonary secondary to demineralization. Small fluids running right hip may represent joint effusion or hematoma from recent trauma. 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 Spoke with Dr. Donald, orthopedic surgery at 06/02/252009: Does not do hip revisions we will speak with 1 of our other general surgeons to see if they would be willing if not would require transfer. Asks that we reduce the hip in the meantime. Dr. Donald, spoke with our other orthopedic surgeons, do not feel comfortable would request transfer to [place] to patients primary. He would recommend reduction here in the department. Dr. Donald in the department. Discussed with the patient she is agreeable for attempted reduction here in the department by myself. Patient had successful reduction, tolerated well. DR. Donald requests CT of hip. Plan for transfer to [place] for continuity of care and revision, patient poly appears to have migrated from joint. Spoke with the patient may require transfer to [place] [facility] instead of [place] she is agreeable. [place] [facility] coordinator states orthopedic group states it is not their patient and will not take them. Call out to [facility], spoke with coordinator. Will page out orthopedics. 06/03/[address] Caldera, orthopedic surgery. Spoke with him. He is in [place] currently. [facility] is covering his patients, to call them. Will try calling directly to office. Spoke with Dr. Raygoza [phone] covering for [facility], states that they are covering for Dr. Caldera but states they do not have anyone for hip revisions with this scenario. He is unsure what the call coverage situation is for Dr. Caldera as there is another group that might be able to take the patient. 06/03/[address] Pennington, orthopedics for . Called back, will need to message their joint specialist. Asks that we recontact [facility] in the morning as they do historically have orthopedic surgeons who do this type of revision and if they do not have coverage for the necessary revision they will be happy to take care of patient. Discussed oncoming orthopedic surgeon is the joint specialist and will let them know about difficulty with transfer and they can make final decision. Case d/w Dr.Clifford Jacome - has formally accepted pt for transfer but his collegue will be performing surgery next week . Discharge Plan Departure Patient Disposition: [facility] Clinical Impression: Recurrent dislocation of hip Prescriptions: No Action potassium chloride 10 mEq capsule, extended release 10 meq PO BID PRN (Reason: potassium supplement) prednisone 5 mg tablet 5 mg PO DAILY losartan 25 mg tablet 12.5 mg PO DAILY omeprazole 20 mg capsule,delayed release(DR/EC) 20 mg PO DAILY Rinvoq 15 mg tablet extended release 24 hr 15 mg PO DAILY morphine 100 mg tablet extended release PO hydrocodone-acetaminophen 10-325 mg tablet 2 tab PO Q4H lidocaine 5 % adhesive patch,medicated 2 patch TOP DAILY Qty: 30 0RF Rx Instructions: leave on most painful area for up to 12 hrs Referrals: Michael Booth MD [Primary Care Provider, Internal Medicine]
[2025-06-02] MEDS: ONDANSETRON 4 MG/2 ML INJ IV (20:14)
[2025-06-02] MEDS: MORPHINE 4 MG/ML INJ IV ×2 (20:16→21:02)
[2025-06-02 20:31] LABS: Add Manual Diff / Slide Review NO; Hematocrit 29.2 % (36-46); Hemoglobin 9.9 g/dL (12.0-16.0); Lymphocytes Absolute Auto 500 /uL (1100-4500); Mean Corpuscular HGB Conc 33.9 % (30-36); Mean Corpuscular Hemoglobin 30.6 PG (26-34); Mean Corpuscular Volume 90.5 fL (80-100); Platelet Count 223 X10^3/uL (150-400)
[2025-06-02 20:32] LABS: INR 1.0 (0.9-1.3); Prothrombin Time 10.9 SECONDS (9.4-12.5)
[2025-06-02 20:35] LABS: PTT Partial Thromboplastin Tim 24 SECONDS (25.1-36.5)
[2025-06-02 20:36] LABS: Alanine Aminotransferase 13 IU/L (<35); Albumin 3.7 g/dL (3.5-5.0); Albumin Globulin Ratio 1.4 (1.0-2.8); Alkaline Phosphatase 67 U/L (38-126); Blood Urea Nitrogen 9 mg/dL (7-17); Calcium 9.0 mg/dL (8.4-10.2); Carbon Dioxide 27 mmol/L (22-32); Chloride 104 mmol/L (98-107); Estimated Glomerular Filt Rate > 60 mL/min (>60); Globulin 2.7 g/dL (1.7-4.1); Glucose 85 mg/dL (70-99); HEMOLYSIS < 15 (0-50); Potassium 3.8 mmol/L (3.4-5.1); Sodium 137 mmol/L (137-145); Total Protein 6.4 g/dL (6.3-8.2)
[2025-06-02] MEDS: SODIUM CHLORIDE 0.9% 1,000 ML 100 ML IV (20:50)
--- NOTE | 2025-06-02 21:31 | DI.RAD.S_ITS ---
PROCEDURE: XR HIP W PEL IF DONE RT 2V INDICATIONS: post reduction TECHNIQUE: 2 views of the hip were acquired. COMPARISON: [facility], CR, XR HIP W PEL RT 2V, 06/02/2025, 19:00. [facility], CR, XR HIP W PEL IF DONE LT 2V, 07/17/2019, 11:40. FINDINGS: Bones: Right hip arthroplasty status post reduction. The head of the femoral component is superiorly located within the acetabular component. Osseous fragment is seen superior to the greater trochanter. No suspicious bony lesions. The visualized pelvic ring appears intact. Decreased osseous mineralization. Soft tissues: No suspicious soft tissue calcifications or masses. Atherosclerotic vascular calcifications. IMPRESSION: Right hip arthroplasty status post reduction. The femoral head component is superiorly located within the acetabular component. Osseous fragment superior to the greater trochanter, may represent acute versus chronic fracture fragment. Dictated by: Leonard Briscoe M.D. on 06/02/2025 at 22:17 Approved by: Leonard Briscoe M.D. on 06/02/2025 at 22:19
--- NOTE | 2025-06-02 21:37 | PM.CN.IH.1 ---
History of Present Illness Consult details Date Patient Seen: 06/02/25 Time Patient Seen: 21:37 Chief complaint: c/o right hip dislocation, 3x 24hrs Reason for consult: Right prosthetic hip dislocation Requesting provider: Ashley Rey Narrative: Harmony is a 69-year-old female who has a history of a right hip arthroplasty performed by Dr. Caldera several years ago. Subsequent to her arthroplasty, she had 2 prior dislocations a handful of months ago. Sometime yesterday, she was getting up from bed to go to the [facility] when she dislocated the right hip. She was seen at [facility] ER and had it reduced. She had 2 reductions performed during that stay. She was then discharged and returned home and had a recurrent dislocation. She returned to [facility] and had a 3rd reduction. Before she could even get home, she dislocated a 4th time. She presents to the emergency room here at [facility] and x-rays confirmed a posterior dislocation of the right hip prosthesis. Ortho consult was requested. Meds Home Medications and Allergies Home Medications ?Medication ?Instructions ?Recorded ?Confirmed ?Type lidocaine 5 % topical patch 2 patch topical DAILY back pain 07/17/19 Rx #30 ea Allergies Allergy/AdvReac Type Severity Reaction Status Date / Time tetanus and diphtheria Allergy Verified 06/02/25 18:29 toxoids Exam Vital Signs (past 8 hours): - 06/02/25 18:28 Temperature 98.6 F Pulse Rate 66 Respiratory Rate 20 Blood Pressure 146/66 H Pulse Oximetry 89 L Oxygen Delivery Method Room Air Oxygen Delivery Method Room Air Narrative Exam Narrative: Right lower extremity is in a shortened position. She has pain at the right hip. Distal motor and sensory exams are intact. Objective Imaging Right hip films: My impression: AP pelvis along with a lateral view of the right hip performed June 02, 2025 at 7:00 p.m. demonstrate a right total hip arthroplasty which is dislocated posteriorly. There is no evidence of any fracture or hardware loosening. Plain films performed immediately following reduction showed eccentric position of the femoral head within the acetabular liner on both the AP and lateral views concerning for potential polyethylene dissociation from the acetabular cup. CT scan pelvis: My impression: CT scan of the pelvis demonstrates dissociation of the polyethylene which is displaced posteriorly of the hip joint. The femoral head is reduced within the acetabular cup. Labs 06/02/25 20:00 06/02/25 20:00 Labs: Laboratory Results - last 24 hr 06/02/25 20:00 WBC 2.8 L RBC 3.23 L Hgb 9.9 L Hct 29.2 L MCV 90.5 MCH 30.6 MCHC 33.9 RDW 16.8 H Plt Count 223 Neut % (Auto) 73.6 Lymph % (Auto) 16.5 L Mcdonald % (Auto) 9.1 Eos % (Auto) 0.3 L Baso % (Auto) 0.5 Neut # (Auto) 2100 Lymph # (Auto) 500 L Mcdonald # (Auto) 300 Eos # (Auto) 0 Baso # (Auto) 0 PT 10.9 INR 1.0 APTT 24 L Sodium 137 Potassium 3.8 Chloride 104 Carbon Dioxide 27 BUN 9 Creatinine 0.60 Estimated GFR > 60 BUN/Creatinine Ratio 15.0 Glucose 85 Calcium 9.0 Total Bilirubin 1.1 AST 39 H ALT 13 Alkaline Phosphatase 67 Total Protein 6.4 Albumin 3.7 Globulin 2.7 Albumin/Globulin Ratio 1.4 Assessment & Plan Assessment & Plan narrative: 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 Closed reduction of the right hip was performed in the emergency room and demonstrated eccentric positioning of the femoral head prompting further imaging with CT scan which confirmed dissociation of the polyethylene liner from the acetabular cup. She will need revision surgery to address the dissociation and restore stability. Recommend that she be transferred to [facility] for management by her treating surgeon after discussing case with ortho staff here. Time-Based Coding :: [TOTAL MINUTES] spent with patient and on the chart (including review of chart, obtaining history, exam, reviewing outside data, placing orders, documenting exam and treatment plan, and counseling patient) on [DATE]. PROFEE Charge Codes Inpatient or Observation consultation: [id number]
--- NOTE | 2025-06-02 21:52 | DI.CT.S_ITS ---
PROCEDURE: CT PEL WO CON INDICATIONS: recurrent R hip dislocation TECHNIQUE: Noncontrast 3 mm axial sections acquired through the bony pelvis, with coronal and sagittal reformatting. COMPARISON: [facility], CT, CT PEL WO CON, 07/17/2019, 13:08. [facility], CR, XR HIP W PEL RT 2V, 06/02/2025, 21:37. FINDINGS: Image quality: Excellent. Bones: Bilateral hip arthroplasties. Recent relocation of the right hip arthroplasty. The femoral head component is sitting superiorly within the acetabular component, similar reason x-ray. Again seen fracture fragment superior to the right greater trochanter, possibly acute. Decreased osseous mineralization. Degenerative changes of the spine. Soft tissues: Small fluid surrounding the right hip, may represent joint effusion or hematoma from recent trauma. Atherosclerotic vascular calcifications. IMPRESSION: Relocation of right hip arthroplasty. Humeral head component is again seen to be sitting superiorly within the acetabular component. Fracture fragment superior to the right greater trochanter, possibly acute. Evaluation is limited secondary to demineralization. Small fluid surrounding the right hip, may represent joint effusion or hematoma from recent trauma. Approved by: Leonard Briscoe M.D. on 06/02/2025 at 23:05
--- NOTE | 2025-06-02 22:28 | PC.NURSE ---
knee immobilizer reapplied r leg post reduction - accompanied pt to ct
--- NOTE | 2025-06-02 23:12 | PC.NURSE ---
s/p right hip reduction. We are searching for location to send pt for othopedic procedure at this time. Pt aware. Placed méndez due to prolonged immobilization. Attempted BM on bed villarreal, pt unable to produce, removed villarreal ensured brief in place. Pillow placed between legs, and pillow to outside of right hip/upper leg, knee immobilzer in place.
[2025-06-03] VITALS (55 sets, daily range): BP systolic 107–213; BP diastolic 58–104; PULSE 49–87; RESP 15–27; TEMP 37.2; O2SAT 91–99
[2025-06-03] MEDS: MORPHINE 4 MG/ML INJ IV ×4 (01:46→22:33)
[2025-06-03] MEDS: LOSARTAN 25 MG TABLET 12.5 MG PO (01:47)
--- NOTE | 2025-06-03 02:17 | PC.NURSE ---
Attempting to eat chicken broth at this time
[2025-06-03] MEDS: ONDANSETRON 4 MG/2 ML INJ IV ×3 (02:46→21:49)
[2025-06-03] MEDS: ACETAMINOPHEN 325 MG TABLET 650 MG PO (02:46)
--- NOTE | 2025-06-03 04:53 | PC.NURSE ---
pt off fx villarreal. no bm only passing gas
[2025-06-03] MEDS: NICOTINE 21 MG PATCH TOP (19:15)
[2025-06-03] MEDS: SODIUM CHLORIDE 0.9% 1,000 ML 100 ML IV (19:45)
--- NOTE | 2025-06-03 23:31 | PC.NURSE ---
Report given/care transferred to [facility] transport team
--- NOTE | 2025-06-04 00:32 | PC.NURSE ---
Attempted to call RN report to [phone] x [phone]; was not able to reach RN Phoned transfer center for alternate number, was given [phone] for scrap charger. Attempted to phone report again but was unable to reach RN or leave message.
== END 2025-06-03 23:47 | disposition short-term general hospital (02) ==
PROVIDERS: Emergency Provider Emergency Medicine; PCP Internal Medicine
DX: S73.004A Unspecified dislocation of right hip, initial encounter (principal); S72.091A Other fracture of head and neck of right femur, initial encounter for closed fracture; M80.051A Age-related osteoporosis with current pathological fracture, right femur, initial encounter for fracture; Z96.643 Presence of artificial hip joint, bilateral
CPT/HCPCS: 27265; 36415; 72192; 73502; 80053; 85025; 85610; 85730; 96361; 96374; 96375; 96376; 99152; 99285; J2270; J2405; J2704